=== PATIENT | female | born 1995 | race African-American/Black ===

== ENCOUNTER 2021-03-15 19:19 | Emergency (ER) | payer OTHER ==
[~2021-03-15] VITALS: Ht 162.6 cm; Wt 63.5 kg
[2021-03-15 19:45] VITALS: BP 154/70
[2021-03-15] MEDS ORDERED: AMOXICILLIN 50500 MG PO (20:01)
[2021-03-15] MEDS ORDERED: FLONASE 0.05%50 MCG NARES (20:01)
== END 2021-03-15 20:00 | disposition home or self-care (01) ==
LOC: ER 19:19
DX: H66.91 Otitis media, unspecified, right ear (principal)